=== PATIENT | female | born 1990 | race Caucasian/White ===

== ENCOUNTER 2017-05-27 10:42 | Inpatient (IN) | payer OTHER ==
[~2017-05-27] VITALS: Ht 154.9 cm; Wt 79.1 kg
[2017-05-27] VITALS (41 sets, daily range): BP systolic 100–135; BP diastolic 56–89; PULSE 58–105; TEMP 97.7–99
[2017-05-27] MEDS ORDERED: NATURAL IRON65 MG PO (11:08)
[2017-05-27] MEDS ORDERED: PRENATAL MVI PO (11:08)
[2017-05-27 13:05] LABS: BASO % 0.2 % (0.0-2.0); EOS % 0.1 % (0-4.0); GRAN # 7.7 (1.4-6.5); HEMATOCRIT 35.8 % (37.0-47.0); HEMOGLOBIN 12.8 g/dl (12.5-16.0); LYMPH # 1.2 (1.2-3.4); LYMPH % 12.4 % (20.0-51.0); MEAN CELL VOLUME 88 fl (80.0-100.0); MEAN CORPUSCULAR HEMOGLOBIN 31 pg (27.0-31.0); MEAN CORPUSCULAR HGB CONC 36 g/dl (33.0-37.0); MEAN PLATELET VOLUME 9.9 fl (7.4-10.4); MONO # 0.5 (0.1-0.6); MONO % 5.6 % (1.7-9.3); PLATELET COUNT 208 K/mm3 (130-400); RED BLOOD COUNT 4.07 M/mm3 (4.10-5.30); REDCELL DISTRIBUTION WIDTH-CV 13.3 % (11.5-14.5)
[2017-05-27] MEDS ORDERED: PRENATAL ×2 (15:53→15:58)
[2017-05-28] VITALS (45 sets, daily range): BP systolic 100–164; BP diastolic 54–95; PULSE 62–106; TEMP 97.9–99.1
[2017-05-29 03:00] VITALS: BP 108/60; PULSE 81; TEMP 97.8
[2017-05-29 07:10] VITALS: BP 109/63; PULSE 84; TEMP 97.8
[2017-05-29 07:15] LABS: BASO % 0.3 % (0.0-2.0); EOS # 0.1 (0.0-0.7); EOS % 0.8 % (0-4.0); GRAN # 9.1 (1.4-6.5); LYMPH # 1.9 (1.2-3.4); LYMPH % 16.2 % (20.0-51.0); MEAN CELL VOLUME 91 fl (80.0-100.0); MEAN CORPUSCULAR HGB CONC 35 g/dl (33.0-37.0); MEAN PLATELET VOLUME 9.9 fl (7.4-10.4); MONO # 0.7 (0.1-0.6); MONO % 5.9 % (1.7-9.3); PLATELET COUNT 143 K/mm3 (130-400); RED BLOOD COUNT 2.92 M/mm3 (4.10-5.30); REDCELL DISTRIBUTION WIDTH-CV 13.9 % (11.5-14.5)
[2017-05-29 07:24] LABS: HEMATOCRIT 26.5 % (37.0-47.0); HEMOGLOBIN 9.2 g/dl (12.5-16.0); MEAN CORPUSCULAR HEMOGLOBIN 32 pg (27.0-31.0)
[2017-05-29] MEDS ORDERED: FERROUS SU325 MG/TAB PO (11:14)
[2017-05-29] MEDS ORDERED: IBU600 MG PO (11:15)
[2017-05-29] MEDS ORDERED: PERCOCET 325 MG1 TA2 PO (11:15)
[2017-05-29 17:05] VITALS: BP 118/70; PULSE 77; TEMP 97.5
[2017-05-29 19:00] VITALS: BP 107/69; PULSE 76; TEMP 98.3
[2017-05-30 17:07] VITALS: BP 117/75; PULSE 74; TEMP 97.5
[2017-05-30 20:00] VITALS: BP 111/72; PULSE 67; TEMP 98.5
[2017-05-31 02:22] VITALS: BP 118/75; PULSE 74; TEMP 98.5
[2017-05-31 08:50] VITALS: BP 130/85; PULSE 68; TEMP 97.5
== END 2017-05-31 10:30 | disposition home or self-care (01) | DRG 765 ==
LOC: LDRO 10:42 → LDR 10:45 → OB 05-28 15:41
PROVIDERS: Obstetrics & Gynecology
PROC: 10D00Z1 Extraction of Products of Conception, Low, Open Approach (ICD-10-PCS; principal; 2017-05-28)
DX: O62.1 Secondary uterine inertia (principal); D62 Acute posthemorrhagic anemia; Z3A.39 39 weeks gestation of pregnancy; Z37.0 Single live birth; O62.4 Hypertonic, incoordinate, and prolonged uterine contractions; E28.2 Polycystic ovarian syndrome; O90.81 Anemia of the puerperium; Z23 Encounter for immunization
CPT/HCPCS: J0171; J0690; J1885; J2270; J2370; J2400; J2405; J2590; J2795; J3010; J7120

== ENCOUNTER → 2017-07-09 | Outpatient (CLI) | payer OTHER ==
[~2017-07-09] MED LIST: FERROUS SU325 MG/TAB PO; IBU600 MG PO; NATURAL IRON65 MG PO; PERCOCET 325 MG1 TA2 PO; PRENATAL; PRENATAL MVI PO
== END ==
LOC: COL.RAD 11:35
DX: K80.80 Other cholelithiasis without obstruction (principal); K82.9 Disease of gallbladder, unspecified

== ENCOUNTER 2017-08-04 05:32 | Day surgery (SDC) | payer OTHER ==
[2017-08-04] VITALS (8 sets, daily range): BP systolic 96–131; BP diastolic 68–85; PULSE 53–71; TEMP 97.5–97.7
[~2017-08-04] VITALS: Ht 154.9 cm; Wt 62.8 kg
[2017-08-04] MEDS ORDERED: NORCO 325 MG-51 TAB PO (08:24)
== END 2017-08-04 11:35 | disposition home or self-care (01) ==
LOC: SDCO 05:32
DX: K80.10 Calculus of gallbladder with chronic cholecystitis without obstruction (principal); J45.909 Unspecified asthma, uncomplicated; Z80.0 Family history of malignant neoplasm of digestive organs; Z80.3 Family history of malignant neoplasm of breast
CPT/HCPCS: J1100; J2270; J2405; J2704; J2710; J2765; J3010; J7120; Q9967